=== PATIENT | female | born 1965 | race African-American/Black ===

== ENCOUNTER 2022-07-29 10:47 | Emergency (ER) | payer MEDICAID ==
[~2022-07-29] VITALS: Ht 162.6 cm; Wt 114.0 kg
[2022-07-29] MEDS ORDERED: KETOROLAC 60MG/2ML VIAL IM ONE (13:00)
[2022-07-29 13:36] VITALS: BP 152/94
[2022-07-29] MEDS ORDERED: IBUP-2028 MT (14:03)
== END 2022-07-29 14:07 | disposition home or self-care (01) ==
LOC: ER 11:06
DX: M25.561 Pain in right knee (principal); I10 Essential (primary) hypertension; Z98.890 Other specified postprocedural states
CPT/HCPCS: 73560; 96372; 99283; J1885